=== PATIENT | female | born 1985 | race African-American/Black ===

== ENCOUNTER 2018-09-19 08:04 | Emergency (ER) | payer OTHER ==
[2018-09-19 08:16] VITALS: BP 140/82
[2018-09-19] MEDS ORDERED: ONDANSETRON HCL INJ/PF 4 MG/2 ML SDV IV ONE (09:01)
[2018-09-19] MEDS ORDERED: DICYCLOMINE HCL INJ 20 MG/2 ML AMPULE IM STA (09:01)
[2018-09-19] MEDS ORDERED: NORMAL SALINE 1000 ML 1,000 ML IV ONE ×2 (09:01→10:44)
--- NOTE | 2018-09-19 09:04 | ER Document Report ---
ED Medical Screen (RME) - General Chief Complaint: Vomiting/Diarrhea Stated Complaint: VOMITING,DIARRHEA Time Seen by Provider: 09/19/18 08:52 Mode of Arrival: Ambulatory Information source: Patient TRAVEL OUTSIDE OF THE [place] IN LAST 30 DAYS: No - HPI Patient complains to provider of: n/v/d Notes: 09/19/18 09:02 Patient is here with her son who is being seen for nausea, vomiting, diarrhea as well as several other extended family members for the same exact symptoms. They were all together on Wednesday and Wednesday, her son was the first victim of nausea, vomiting, diarrhea and now every day her son seems to have improved, the patient states that she was up all night with nausea vomiting has not been able to keep anything at all down. She states that she has a history of dehydration and she is concerned that she is high dehydrated at this time. She complains of some generalized abdominal cramping. Diarrhea. No blood in her vomit or her stool. Physical exam: Patient is in no distress, she is nontoxic-appearing. She does appear to be somewhat uncomfortable. Limited triage exam shows no focal abdominal tenderness , no CVA tenderness. Mild tachycardia. She does not appear to be overtly dehydrated. Plan: I have ordered labs as well as urine, IV, saline, Zofran, Bentyl. Do believe that the patient most likely has a viral gastroenteritis similar to the rest of her family members, but we will ensure that she does not have any electrolyte imbalances from her vomiting and diarrhea and will rehydrate the patient and re- evaluate. An initial examination was made on the patient as part of the triage process, and it was determined a more comprehensive evaluation was necessary. Initial labs were ordered and patient was transferred to another provider in the ED who assumed care and finished evaluation and plan. - Related Data Allergies/Adverse Reactions: aspirin Allergy (Verified 09/19/18 08:39) Past Medical History - Social History Chew tobacco use (# tins/day): No Frequency of alcohol use: Occasional Drug Abuse: None Renal/ Medical History: Denies: Hx Peritoneal Dialysis Past Surgical History: Reports: Hx Section, Hx Orthopedic Surgery - back - Immunizations Immunizations up to date: Yes Hx Diphtheria, Pertussis, Tetanus Vaccination: Yes Physical Exam - Vital signs Vitals: Temp Pulse Resp BP Pulse Ox 98.2 F 97 24 H 140/82 H 97 04/15/19 08:14 09/19/18 08:14 09/19/18 08:14 09/19/18 08:14 09/19/18 08:14 Course - Vital Signs Vital signs: Temp Pulse Resp BP Pulse Ox 98.2 F 97 24 H 140/82 H 97 09/19/18 08:14 09/19/18 08:14 09/19/18 08:14 09/19/18 08:14 09/19/18 08:14
--- NOTE | 2018-09-19 09:53 | ER Document Report ---
ED General - General Chief Complaint: Vomiting/Diarrhea Stated Complaint: VOMITING,DIARRHEA Time Seen by Provider: 09/19/18 08:52 Primary Care Provider: HAZEL MERAZ MD [ACTIVE STAFF] - Follow up as needed YAZAN MATTHEW MD [ACTIVE STAFF] - Follow up as needed Mode of Arrival: Ambulatory TRAVEL OUTSIDE OF THE [place] IN LAST 30 DAYS: No - HPI Notes: Patient is a 32-year-old female with a history of appendectomy who presents the emergency department complaining of intermittent abdominal cramping with associated nausea, vomiting, and watery diarrhea that began this past weekend. Patient states that she is starting to feel dehydrated as she has not been able to keep anything down for a long period of time. She is still able to urinate. Patient states that the same symptoms and illnesses spreading around her household at this time. Patient states that she currently does not have any abdominal pain. She has not had any vaginal discharge, odor, or bleeding. No other concerns or complaints. Denies any headache, fever, neck pain, URI, sore throat, chest pain, palpitations, syncope, cough, shortness of breath, wheeze, dyspnea, urinary retention, dysuria, hematuria, or rash. - Related Data Allergies/Adverse Reactions: aspirin Allergy (Verified 09/19/18 08:39) Past Medical History - General Information source: Patient - Social History Smoking Status: Never Smoker Chew tobacco use (# tins/day): No Frequency of alcohol use: Occasional Drug Abuse: None Family History: Reviewed & Not Pertinent Patient has suicidal ideation: No Patient has homicidal ideation: No Renal/ Medical History: Denies: Hx Peritoneal Dialysis Past Surgical History: Reports: Hx Section, Hx Orthopedic Surgery - back - Immunizations Immunizations up to date: Yes Hx Diphtheria, Pertussis, Tetanus Vaccination: Yes Review of Systems - Review of Systems -: Yes All other systems reviewed and negative Physical Exam - Vital signs Vitals: Temp Pulse Resp BP Pulse Ox 98.2 F 97 24 H 140/82 H 97 09/19/18 08:14 09/19/18 08:14 09/19/18 08:14 09/19/18 08:14 09/19/18 08:14 - Notes Notes: PHYSICAL EXAMINATION: GENERAL: Well-appearing, well-nourished and in no acute distress. HEAD: Atraumatic, normocephalic. EYES: Pupils equal round and reactive to light, extraocular movements intact, sclera anicteric, conjunctiva are normal. ENT: Nares patent and without discharge. oropharynx clear without exudates. No tonsilar hypertrophy or erythema. Moist mucous membranes. NECK: Normal range of motion, supple without lymphadenopathy LUNGS: Breath sounds clear to auscultation bilaterally and equal. No wheezes rales or rhonchi. HEART: Regular rate and rhythm without murmurs, rubs, gallops. ABDOMEN: Soft, nontender, nondistended abdomen. No guarding, no rebound. Normal bowel sounds present. No CVA tenderness bilaterally. Musculoskeletal: FROM to passive/active. Strength 5+/5. Extremities: No cyanosis, clubbing, or edema b/l. Peripheral pulses 2+. Capillary refill less than 3 seconds. NEUROLOGICAL: Normal speech, normal gait. PSYCH: Normal mood, normal affect. SKIN: Warm, Dry, normal turgor, no rashes or lesions noted. Course - Re-evaluation Re-evalutation: 09/19/18 Patient is an afebrile, well-hydrated, 32-year-old female who presents to the emergency department with nausea/vomiting/diarrhea, suspect viral. Vitals are acceptable without significant tachycardia, tachypnea, or hypoxia. PE is otherwise unremarkable. Her abdomen is soft and nontender. CBC, CMP, lipase, hCG, urinalysis acceptable at this time. Patient received nausea medicine as well as fluids. She is nontoxic-appearing and is able to tolerate p.o. at this time. She has not had any episodes of emesis. Low suspicion/risk for acute appendicitis, bowel obstruction, acute cholecystitis, acute cholangitis, perforated diverticulitis, incarcerated hernia, pancreatitis, perforated ulcer, peritonitis, sepsis, pelvic inflammatory disease, ectopic , tubo- ovarian abscess, ovarian torsion, or other systemic emergent condition at this time. Patient is aware that her condition can change from initial presentation and she needs to monitor symptoms closely and seek medical attention if any acute changes. Conservative measures otherwise for symptoms. Recheck with your PCM in 2-3 days. Consider consult with a ladies suit operator. Return to the ED with any worsening/concerning symptoms otherwise as reviewed in discharge. Patient is in agreement. Pt was given discharge instruction, but pulled her IV out and left without anyone knowing prior to receiving discharge instructions. - Vital Signs Vital signs: Temp Pulse Resp BP Pulse Ox 98.2 F 97 24 H 140/82 H 97 09/19/18 08:14 09/19/18 08:14 09/19/18 08:14 09/19/18 08:14 09/19/18 08:14 - Laboratory Result Diagrams: 09/19/18 09:25 09/19/18 11:10 Laboratory results interpreted by me: 09/19/18 09/19/18 09/19/18 09:25 09:25 11:10 WBC 10.7 H MCV 79 L MCH 26.2 L RDW 14.8 H Seg Neutrophils % 82.1 H Lymphocytes % 10.5 L Absolute Neutrophils 8.8 H BUN 6 L Lipase 307.8 H Urine Ketones TRACE H Discharge - Discharge Clinical Impression: Nausea vomiting and diarrhea Condition: Stable Disposition: HOME, SELF-CARE Instructions: Diarrhea, Nonspecific ([facility]), Vomiting ([facility]) Additional Instructions: Maintain adequate fluid and food intake [place] diet ([employer] Bananas, rice, apples, toast, etc Zofran as needed tylenol if needed Monitor for any worsening symptoms Make sure you are staying hydrated enough to urinate and have normal BM's Recheck with your PCM in 2-3 days Consider consult with Gastroenterology for ongoing/worsening symptoms Return to the ED with any worsening symptoms and/or development of fever, headache, chest pain, palpitations, syncope, shortness of breath, trouble breathing, abdominal pain, n/v/d, blood in stool/urine, weakness, or other worsening symptoms that are concerning to you. Prescriptions: Ondansetron [Zofran Odt 4 mg Tablet] 1 - 2 tab PO Q4H PRN #15 tab.rapdis PRN Reason: For Nausea/Vomiting Forms: Elevated Blood Pressure Referrals: YAZAN MATTHEW MD [ACTIVE STAFF] - Follow up as needed HAZEL MERAZ MD [ACTIVE STAFF] - Follow up as needed
[2018-09-19 10:14] LABS: APPEARANCE,URINE SLIGHTLY-CLOUDY; BILIRUBIN,URINE NEGATIVE (NEGATIVE); COLOR,URINE YELLOW; GLUCOSE, URINE NEGATIVE (NEGATIVE); KETONES,URINE TRACE mg/dL (NEGATIVE); LEUKOCYTE ESTERASE,URINE NEGATIVE (NEGATIVE); NITRITE,URINE NEGATIVE (NEGATIVE); PROTEIN,URINE NEGATIVE (NEGATIVE); URINE SPECIFIC GRAVITY 1.019; UROBILINOGEN,URINE NEGATIVE mg/dL (<2.0)
[2018-09-19 10:15] LABS: ABSOLUTE LYMPHOCYTES (AUTO) 1.1 10^3/uL (0.5-4.7); ABSOLUTE MONOCYTES (AUTO) 0.8 10^3/uL (0.1-1.4); ABSOLUTE NEUT (AUTO) 8.8 10^3/uL (1.7-8.2); BASOPHILS % (AUTO) 0.2 % (0-2); HEMATOCRIT 40.4 % (36.0-47.0); HEMOGLOBIN 13.3 g/dL (12.0-15.5); LYMPHOCYTES % (AUTO) 10.5 % (13-45); MEAN CORPUSCULAR HEMOGLOBIN 26.2 pg (27.0-33.4); MEAN CORPUSCULAR VOLUME 79 fl (80-97); MONOCYTES % (AUTO) 7.2 % (3-13); PLATELET COUNT 410 10^3/uL (150-450); RED CELL DISTRIBUTION WIDTH 14.8 % (11.5-14.0); SEGMENTED NEUTROPHILS % (AUTO) 82.1 % (42-78); TOTAL CELLS COUNTED % (AUTO) 100 %; WHITE BLOOD COUNT 10.7 10^3/uL (4.0-10.5)
[2018-09-19] MEDS ORDERED: METOCLOPRAMIDE HCL INJ/PF 10 MG/2 ML SDV IV ONE (10:44)
[2018-09-19 11:50] LABS: ALANINE AMINOTRANSFERASE 27 U/L (9-52); ALBUMIN 3.5 g/dL (3.5-5.0); ALKALINE PHOSPHATASE 92 U/L (38-126); ANION GAP 8 (5-19); ASPARTATE AMINO TRANSFERASE 15 U/L (14-36); BILIRUBIN,DIRECT 0.3 mg/dL (0.0-0.4); BILIRUBIN,TOTAL 0.5 mg/dL (0.2-1.3); BLOOD UREA NITROGEN 6 mg/dL (7-20); CALCIUM 8.8 mg/dL (8.4-10.2); CARBON DIOXIDE 24 mmol/L (22-30); CHLORIDE 106 mmol/L (98-107); GLUCOSE 107 mg/dL (75-110); LIPASE 307.8 U/L (23-300); POTASSIUM 3.9 mmol/L (3.6-5.0); SODIUM 138.2 mmol/L (137-145); TOTAL PROTEIN 6.9 g/dL (6.3-8.2)
== END 2018-09-19 12:49 | disposition left against medical advice (07) ==
LOC: ER 08:04
DX: R10.9 Unspecified abdominal pain (principal); R11.2 Nausea with vomiting, unspecified; R19.7 Diarrhea, unspecified; E86.0 Dehydration
CPT/HCPCS: 99284; 96372; 96361; 96374; 96375; 36415; 83690; 84703; 85025; 80053; 81001; J0500; J2765; J2405; J7030